=== PATIENT | male | born 1935 | race Caucasian/White ===

== ENCOUNTER → 2019-04-27 | Outpatient (CLI) | payer MEDICARE ==
[~2019-04-27] MED LIST: ASA81BEC PO; AZO CRANBERRY1 EAC1 PO; CALCIUM 500 +1 EAC6 PO; CO Q-1010 MG; CO Q-10100 MG PO; GARLIC OIL1 EACH PO; GLUCOSAMINE1000 MG PO; MACROBID 100 M100 M1 PO; MAGNESIUM OXID200 MG; MULTIVITAMINS1 EAC7 PO; NIACIN 500 MG500 M1 PO; NITROGLYCERIN0.4 MG SL; OMEGA-3100 MG; OMEGA-31000 M1 PO; PROLOPRIM100 MG PO; PROSCAR 5MG TABL5 M1 PO
--- NOTE | 2019-04-27 15:11 | 2DMMODE ---
[place] [address] 2 D/M-MODE ECHOCARDIOGRAM Name: MICHAEL CARBONE Room: [facility]#: [id number] Admission: 04/27/19 Attend Phys: Gerda Limon Discharge: Date of : 35 Date of Service: 04/27/19 1511 Report #: [id number] THIS REPORT FOR: //name// APPROVED REPORT Study performed: 04/27/2019 13:58:09 EXAM: Comprehensive 2D, Doppler, and color-flow Echocardiogram Patient Location: Out-Patient BSA: 2.22 HR: 55 bpm BP: 145/72 mmHg Other Information Study Quality: Fair Indications CAD 2D Dimensions IVSd: 13.58 (7-11mm) LVOT Diam: 20.80 (18-24mm) LVDd: 48.14 mm PWd: 11.42 (7-11mm) Ascending Ao: 29.41 (22-36mm) LVDs: 25.24 (25-40mm) Aortic Root: 27.75 mm Volumes Left Atrial Volume (Systole) LA ESV Index: 18.40 mL/m2 Aortic Valve AoV Peak Jeffery.: 1.19 m/s AO Peak Gr.: 5.62 mmHg LVOT Max P.49 mmHg AO Mean Gr.: 2.89 mmHg LVOT Mean P.11 mmHg LVOT Max V: 1.06 m/s AO V2 VTI: 27.72 cm LVOT Mean V: 0.66 m/s LAMBERT (VTI): 3.68 cm2 LVOT V1 VTI: 30.00 cm Mitral Valve E/A Ratio: 1.01 MV Decel. Time: 451.68 ms MV E Max Jeffery.: 0.49 m/s MV PHT: 130.99 ms MVA (PHT): 1.68 [place] [address] 2 D/M-MODE ECHOCARDIOGRAM Name: MICHAEL CARBONE Room: [facility]#: [id number] Admission: 04/27/19 Attend Phys: Gerda Limon Discharge: Date of : 35 Date of Service: 04/27/19 1511 Report #: [id number] TDI E/Lateral E': 7.00 E/Medial E': 9.80 Medial E' Jeffery.: 0.05 m/s Lateral E' Jeffery.: 0.07 m/s Pulmonary Valve PV Peak Jefefry.: 0.87 m/s PV Peak Gr.: 3.05 mmHg Tricuspid Valve RAP Estimate: 5.00 mmHg TR Peak Gr.: 23.78 mmHg RVSP: 28.78 mmHg PA Pressure: 28.78 mmHg Left Ventricle The left ventricle is normal size. There is normal LV segmental wall motion. There is normal left ventricular wall thickness. Left ventricular systolic function is normal. The left ventricular ejection fraction is within the normal range. LVEF is 55-60%. The left ventricular diastolic function is normal. Right Ventricle The right ventricle is normal size. The right ventricular systolic function is normal. Atria The left atrium size is normal. The right atrium size is normal. Aortic Valve Aortic valve is mildly calcified. Trace aortic regurgitation. There is no aortic valvular stenosis. Mitral Valve The mitral valve is normal in structure. Mild mitral regurgitation. No evidence of mitral valve stenosis. Tricuspid Valve The tricuspid valve is normal in structure. Mild tricuspid regurgitation. Pulmonic Valve The pulmonary valve is normal in structure. Mild pulmonic regurgitation[place] [address] 2 D/M-MODE ECHOCARDIOGRAM Name: MICHAEL CARBONE Room: [facility]#: [id number] Admission: 04/27/19 Attend Phys: Gerda Limon Discharge: Date of : 35 Date of Service: 04/27/19 1511 Report #: [id number] The aortic root is normal in size. IVC is normal in size and collapses >50% with inspiration. Pericardium There is no pericardial effusion. <Conclusion> LVEF is 55-60%. There is normal LV segmental wall motion. There is no aortic valvular stenosis. Trace aortic regurgitation. No evidence of mitral valve stenosis. Mild mitral regurgitation. Mild tricuspid regurgitation. Mild pulmonic regurgitation. <ELECTRONICALLY SIGNED> By: Wong Lopez MD, FACC 04/27/191510 10 10 Wong Lopez MD, FACC /INF
== END ==
LOC: M.CRD 01-20 08:44
DX: I08.8 Other rheumatic multiple valve diseases (principal); I65.23 Occlusion and stenosis of bilateral carotid arteries; I25.10 Atherosclerotic heart disease of native coronary artery without angina pectoris

== ENCOUNTER → 2021-02-09 | Outpatient (CLI) | payer MEDICARE ==
[~2021-02-09] VITALS: Ht 185.4 cm; Wt 99.8 kg
[~2021-02-09] MED LIST changes: +COMBIGAN EYE DR10 ML EA. EYE; +GLUCOSAMINE-CH1 EA33 PO; +MIDODRINE HCL10 MG PO; +MIRALAX17 GM PO; +PRALUENT P75 MG/1 ML SUBQ; +VITAMINE D3 PO; +XALATAN2.5 M1 OPHTHALMIC
[2021-02-09 10:02] VITALS: BP 157/79
[2021-02-09 10:10] LABS: HEMOGLOBIN 15.4 gm/dL (14.0-18.0); MCH 30.2 pg (26.0-34.0); MCHC 33.4 g/dL (28.0-37.0); MCV 90.5 fL (80.0-100.0); MPV 7.8 fl. (7.2-11.1); RBC 5.08 mil/uL (4.50-6.00); RDW-CV 13.5 % (10.5-14.5); WBC 7.3 thou/uL (4.0-11.0)
[2021-02-09 10:23] LABS: CALCIUM 9.6 mg/dL (8.5-10.1); CREATININE 1.1 mg/dL (0.6-1.3); TOTAL BILIRUBIN 0.8 mg/dL (<0.1-1.0); TOTAL PROTEIN 8.3 g/dL (6.4-8.2)
[2021-02-09 10:53] LABS: APTT 27.8 Seconds (25.0-31.3)
[2021-02-09 10:55] LABS: INR 0.9; PROTIME 9.8 Seconds (9.20-11.50)
[2021-02-09 14:36] VITALS: BP 148/84
--- NOTE | 2021-02-09 14:53 | EKG ---
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
[2021-02-09 15:30] VITALS: BP 129/57
--- NOTE | 2021-02-09 16:00 | CARD ---
[address] [address] CARDIAC CATH REPORT Name: MICHAEL CARBONE Room: [facility]#: [id number] Admission: 02/09/21 Attend Phys: Jeff Chu MD, F Discharge: Date of : 35 Report #: [id number] THIS REPORT FOR: cc: HERMAN MOORE DO Physician not on staff Jeff Chu MD [facility] ~ APPROVED REPORT Study performed: 02/09/2021 10:47:36 Patient Status: Out-Patient Room #: Event Personnel: Jeff Chu Crm Technical Lead, Almita Gupta RN Director Career, Raymond Craig [employer]LINE BEADING MACHINE TENDER Monitor, Priscilla Alan RTR Scrub Exam: Insertion of Dual Chamber Permanent Pacemaker Indications: Sick Sinus Syndrome/Tachy Arsh Syndrome The patient is a 85 year-old male with a history of Sick Sinus Syndrome. Patient Info Antiplatelet Therapy: asa Conscious Sedation Start time: 11:50 End Time: 14:03 Fentanyl 25 mcg Versed 2 mg Implanted Devices: Insertion of Dual PPM Procedure The patient underwent informed consent. We discussed the details of the procedure including the risks, which include, but not limited to bleeding, infection, vascular damage, cardiac perforation, and pneumothorax. He understood these risks and was willing to proceed. As such, he was brought to the EP/Cardiac Catheterization laboratory in a fasting and sedated state and prepped and draped in a sterile fashion, received IV antibiotics prior to initiation of the procedure and a venogram was performed showing patency of the left axillary vein. The patient underwent conscious sedation, with no related complications. The patient was brought to the EP/Cardiac Catheterization laboratory and the left chest and shoulder were prepped and [place] [address] CARDIAC CATH REPORT Name: MICHAEL CARBONE Room: [facility]#: [id number] Admission: 02/09/21 Attend Phys: Jeff Chu MD, F Discharge: Date of : 35 Report #: [id number] During this case, Fluoroscopy and omnipaque 20 cc were used for imaging. IV conscious sedation was used throughout procedure with appropriate monitoring and was performed in the presence of a registered nurse who was an independent trained observer other than the physician performing the procedure. The left subclavian region was infiltrated with 2% Lidocaine subcutaneous anesthesia. A transverse incision was made in the left upper chest cavity. The subcutaneous pocket was formed via blunt dissection. Percutaneous venous access was achieved and an introducer sheath was inserted into the left Subclavian vein. Sheaths were positions using the modified Seldinger technique Through the introducer sheaths the atrial and ventricular lead wires were positioned in the right atrial appendage and right ventricular apex respectively. Utilizing fluoroscopic guidance, the atrial and ventricular lead wires were advanced over the wires and positioned in the right atria and right ventricle respectively. Capturing and sensing thresholds were verified. During suturing the incsision closed, the ventricular lead was interrogated wirelessly and was noted to have an increase in resistance. The pocket was opened and the ventricular lead was removed from the generator. The lead was repositioned in the right ventricle, and threshold for sensing and capture were reaffirmed. The new ventricular lead was rescrewed in place and reattached to the pacemaker generator. Electrode Parameters P Wave: 3.5 mv R Wave: 20 mv Atrial Threshold: 0.6 v @ 0.4 ms Ventricular Threshold: o.6 v @ 0.4 ms Atrial Resistance: 610 ohm Ventricular Resistance: 1200 ohm Dual Chamber The atrial and ventricular leads were then secured using 0 silk sutures. The subcutaneous pocket was irrigated with Ancef 1 gram antibiotic solution.The atrial and ventricular leads were attached to the appropriate receptacles on the pulse generator and set screws firmly tightened to insure adequate contact and stability. The lead and pulse generator were placed into the subcutaneous pocket. Sharp and sponge counts were confirmed to be correct. At this time the pocket was closed subcutaneously with a 0 Vicryl, 2.0 Vicryl and the skin was closed with a 4.0 Vicryl[place] [address] CARDIAC CATH REPORT Name: MICHAEL CARBONE Room: [facility]#: [id number] Admission: 02/09/21 Attend Phys: Jeff Chu MD, F Discharge: Date of : 35 Report #: [id number] dressed in sterile fashion with Dermabond and the patient was transferred to the floor in stable condition. Complications The patient tolerated the procedure well and there were no complications associated with the procedure. Findings Specimens Removed: No Estimated Blood Loss: < 5 ml Conclusion successful placement of a dual chamber MRI compatible Biotronic pacemaker and leads. <ELECTRONICALLY SIGNED> By: Jeff Chu MD, FACC 02/09/211599 1600 99Dathalia Chu MD, FACC /INF
--- NOTE | 2021-02-09 16:06 | EKG ---
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1935 Requested By: Jeff Chu Order Number: [id number] Reading MD: Jeff Chu Measurements Intervals [place] Rate: 61 P: 9 [place]: 195 QRS: 78 QRSD: 120 T: 23 QT: 439 QTc: 443 Interpretive Statements Sinus rhythm Nonspecific intraventricular conduction delay Probable inferior infarct, old ST depression V1-V3, suggest recording posterior leads Compared to ECG 02/09/2021 10:20:00 Sinus bradycardia no longer present Myocardial infarct finding still present ST (T wave) deviation still present Electronically Signed On 02-09-2021 16:06:04 CDT by Jeff Chu [email or web address] <ELECTRONICALLY SIGNED> By: Jeff Chu MD, FACC 02/09/21 1606 1501 1501 Jeff Chu MD, [facility] /EPI
--- NOTE | 2021-02-09 16:07 | EKG ---
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 02/09/21 1607 1503 1503 Jeff Chu MD, [facility] /EPI
== END | disposition home or self-care (01) ==
LOC: M.CL 09:20
PROVIDERS: ATTEND Internal Medicine Cardiovascular Disease
DX: I49.5 Sick sinus syndrome (principal); I25.10 Atherosclerotic heart disease of native coronary artery without angina pectoris; E78.5 Hyperlipidemia, unspecified; G62.9 Polyneuropathy, unspecified; G47.30 Sleep apnea, unspecified; Z95.1 Presence of aortocoronary bypass graft; Z98.890 Other specified postprocedural states; Z79.899 Other long term (current) drug therapy; Z87.891 Personal history of nicotine dependence; Z79.82 Long term (current) use of aspirin

== ENCOUNTER → 2021-05-03 | Outpatient (CLI) | payer MEDICARE | LOC: M.MRI 04-18 10:37 | PROVIDERS: ATTEND Psychiatry & Neurology Neurology | DX: M47.816 Spondylosis without myelopathy or radiculopathy, lumbar region (principal); M71.38 Other bursal cyst, other site; M48.061 Spinal stenosis, lumbar region without neurogenic claudication; M43.16 Spondylolisthesis, lumbar region; M48.02 Spinal stenosis, cervical region; M47.812 Spondylosis without myelopathy or radiculopathy, cervical region ==